=== PATIENT | female | born 1975 | race Two or more races ===

== ENCOUNTER 2023-04-29 10:05 | Emergency (ER) | payer OTHER ==
[~2023-04-29] VITALS: Ht 167.6 cm; Wt 81.6 kg
[2023-04-29] MEDS ORDERED: KETO10TA2 PO (15:27)
== END 2023-04-29 15:32 | disposition home or self-care (01) ==
LOC: ER 10:06
DX: M79.642 Pain in left hand (principal)

== ENCOUNTER 2023-12-15 13:53 | Emergency (ER) | payer OTHER ==
[~2023-12-15] VITALS: Ht 167.6 cm; Wt 81.6 kg
[~2023-12-15 13:53] MED LIST: KETO10TA2 PO
[2023-12-15] MEDS ORDERED: ORPHENADRINE CITRATE 30 MG/ML AMPUL IM ONE (14:30)
[2023-12-15] MEDS ORDERED: KETOROLAC TROMETHAMINE 60 MG VIAL IM ONE (14:30)
[2023-12-15 16:17] LABS: PH,URINE 5.5 (5.0-8.0); URINE APPEARANCE Cloudy; URINE BILIRRUBIN Negative (NEGATIVE); URINE BLOOD Negative; URINE COLOR Yellow; URINE GLUCOSE Negative (NEGATIVE); URINE LEUKOCYTE Negative; URINE NITRATE Negative; URINE PROTEIN Negative (NEGATIVE); URINE UROBILINOGEN 0.2 E.U./dl
[2023-12-15 16:23] LABS: URINE BACTERIA 3745.8 uL (0.0-1933); URINE EPITHELIAL CELLS 170.4 uL (0.0-38.8); URINE RBC 37.7 uL (0.0-20.8); URINE WBC 14.5 uL (0.0-23.2)
[2023-12-15] MEDS ORDERED: TRAMADOL HCL 50 MG TABLET PO ONE (17:15)
== END 2023-12-15 17:15 | disposition home or self-care (01) ==
LOC: ER 13:54
PROVIDERS: General Practice
DX: M54.41 Lumbago with sciatica, right side (principal); N39.0 Urinary tract infection, site not specified; M54.42 Lumbago with sciatica, left side

== ENCOUNTER 2024-02-04 11:49 | Emergency (ER) | payer OTHER ==
[~2024-02-04] VITALS: Ht 170.2 cm; Wt 81.6 kg
[2024-02-04] MEDS ORDERED: KETOROLAC TROMETHAMINE 60 MG VIAL IM STA (14:01)
[2024-02-04] MEDS ORDERED: KETOROLAC TROMETHAMINE 60 MG VIAL IM ONE (14:06)
[2024-02-04 14:45] LABS: HEMATOCRIT 35.7 % (36.0-45.00); HEMOGLOBIN 11.5 g/dL (12.0-15.00); MEAN CELL VOLUME 76.6 fL (80.00-100.00); MEAN CORPUSCULAR HEMOGLOBIN 24.6 pg (27.00-32.0); MEAN CORPUSCULAR HGB CONC 32.1 g/dl (32.0-36.0); PLATELET COUNT 381 K/uL (150-450); RED BLOOD COUNT 4.66 M/uL (4.00-6.00); RED CELL DISTRIBUTION WIDTH 15.5 % (11.5-14.5)
[2024-02-04 15:20] LABS: CALCIUM 9.7 mg/dL (8.5-10.1); CREATININE SERUM 0.7 mg/dL (0.55-1.02); GFR 89.69; POTASSIUM 4.03 mEq/L (3.5-5.1)
[2024-02-04 15:41] LABS: URINE APPEARANCE Clear; URINE BILIRRUBIN Negative (NEGATIVE); URINE BLOOD Negative; URINE COLOR Yellow; URINE GLUCOSE Negative (NEGATIVE); URINE KETONE Trace (NEGATIVE); URINE LEUKOCYTE Negative; URINE NITRATE Negative; URINE PROTEIN Negative (NEGATIVE); URINE UROBILINOGEN 0.2 E.U./dl
[2024-02-04 15:45] LABS: URINE BACTERIA 2367.3 uL (0.0-1933); URINE EPITHELIAL CELLS 72.5 uL (0.0-38.8); URINE WBC 18.8 uL (0.0-23.2)
[2024-02-04 16:09] LABS: URINE CAST 0.76 uL (0.0-1.40)
== END 2024-02-04 18:07 | disposition home or self-care (01) ==
LOC: ER 11:50
PROVIDERS: General Practice
DX: M54.9 Dorsalgia, unspecified (principal); N39.0 Urinary tract infection, site not specified